=== PATIENT | female | born 1945 | race Caucasian/White ===

== ENCOUNTER 2018-01-29 07:30 | Inpatient (IN) | payer OTHER ==
[~2018-01-29] VITALS: Ht 152.4 cm; Wt 120.7 kg
[2018-01-29] MEDS ORDERED: EVISTA60 MG (14:53)
[2018-01-29] MEDS ORDERED: CLARITIN10 M2 (14:53)
[2018-01-29] MEDS ORDERED: HYZAAR 50-12.51 EACH (14:53)
[2018-01-29] MEDS ORDERED: PLAVIX75 MG (14:53)
[2018-01-29] MEDS ORDERED: NORVASC5 MG (14:53)
[2018-01-29] MEDS ORDERED: VOLTAREN-XR100 MG (14:54)
[2018-01-29] MEDS ORDERED: SYNTHROID 25MG (14:54)
[2018-01-29] MEDS ORDERED: NEURONTIN300 MG (14:54)
[2018-01-29] MEDS ORDERED: ESTAZOLAM1 MG (14:54)
[2018-01-29] MEDS ORDERED: NEURONTIN600 MG (14:54)
[2018-01-29] MEDS ORDERED: CELEBREX200MG (14:55)
[2018-01-29] MEDS ORDERED: PROTONIX40 MG (14:55)
[2018-01-29] MEDS ORDERED: CARAFATE1 GM (14:55)
[2018-02-05] MEDS ORDERED: CLONAZEPAM1 MG PO (09:46)
[2018-02-05] MEDS ORDERED: DOCUSATE SODIU100 MG PO (09:46)
[2018-02-05] MEDS ORDERED: PERCOCET 5-3251 EACH PO (09:46)
== END 2018-02-06 14:36 | disposition home or self-care (01) | DRG 472 ==
LOC: PED 02-05 04:55 → O/R 02-05 04:55 → SURH 02-05 07:00 → PED 02-05 13:41
PROVIDERS: Orthopaedic Surgery Orthopaedic Surgery of the Spine
PROC: 0RG20A0 Fusion of 2 or more Cervical Vertebral Joints with Interbody Fusion Device, Anterior Approach, Anterior Column, Open Approach (ICD-10-PCS; 2018-02-05)
PROC: 0RT30ZZ Resection of Cervical Vertebral Disc, Open Approach (ICD-10-PCS; principal; 2018-02-05 07:00)
DX: M47.12 Other spondylosis with myelopathy, cervical region (principal); M50.022 Cervical disc disorder at C5-C6 level with myelopathy; E03.8 Other specified hypothyroidism; I10 Essential (primary) hypertension